=== PATIENT | female | born 1975 | race Caucasian/White ===

== ENCOUNTER 2019-02-14 16:05 | Emergency (ER) | payer OTHER, SELFPAY ==
[2019-02-14 16:08] VITALS: BP 157/94; PULSE 96; RESP 14; TEMP 36.6; O2SAT 94; BMI 28.7
--- NOTE | 2019-02-14 16:49 | ED_ITS ---
HPI - Skin/Abscess/Foreign Bdy <WILMA Casiano - Last Filed: 02/14/19 21:53> General Chief complaint: Skin/Abscess/Foreign Body Stated complaint: states cyst, paper handler problem Time Seen by Provider: 02/14/19 16:14 Source: patient Mode of arrival: ambulatory Limitations: no limitations History of Present Illness HPI narrative: 43-year-old female with a history of diabetes and multiple absc esses, presents emergency department complaining of an abscess on her pubic area that started last week and has grown in size. States that she was recently on a flight and medically because by that, has not tried anything at home. Complains of a sharp 9/10 pain that is worse with touching the area. Associated occasional chills, denies fever, vomiting, abdominal pain, change in bowel or bladder, chest pain, or shortness of breath. Patient also denies calf pain. Related Data Previous Rx's Medication Instructions Recorded sulfamethoxazole-trimethoprim 1 tab PO BID 7 Days #14 tab 02/14/19 Allergies Allergy/AdvReac Type Severity Reaction Status Date / Time No Known Drug Allergies Allergy Verified 02/14/19 16:08 Review of Systems <WILMA Casiano - Last Filed: 02/14/19 21:53> Review of Systems REVIEW OF SYSTEMS: GENERAL: Denies fever or chills. HENT: No head trauma. CARDIOVASCULAR: No chest pain or syncope. RESPIRATORY: No shortness of breath or cough. GASTROINTESTINAL: No nausea, vomiting, diarrhea, or constipation. GENITOURINARY: No flank pain or dysuria. MUSCULOSKELETAL: No pain, weakness, or deformities. INTEGUMENTARY: Complains of abscess, see HPI. NEURO: No numbness, tingling, memory loss, or confusion. PSYCH: No behavior or mood changes. PFSH <WILMA Casiano - Last Filed: 02/14/19 21:53> Medical History Diabetes (Acute) Hx of abscess of skin and subcutaneous tissue (Chronic) Social History Smoking Status: Unknown if ever smoked Social History Smoking Status: Unknown if ever smoked Exam <WILMA Casiano - Last Filed: 02/14/19 21:53> Initial Vital Signs Initial Vital Signs: Vital Signs Temperature 97.8 F 02/14/19 16:08 Pulse Rate 96 H 02/14/19 16:08 Respiratory Rate 14 02/14/19 16:08 Blood Pressure 157/94 H 02/14/19 16:08 Pulse Oximetry 94 02/14/19 16:08 PHYSICAL EXAMINATION: GENERAL: Alert and cooperative Answers questions promptly and appropriately. Vital signs noted. HENT: Normocephalic, atraumatic. EYES: Conjunctiva pink, sclera white, no periorbital swelling. NECK: Full range of motion. CARDIOVASCULAR: S1 and S2 sounds normal. Regular rate and rhythm, no murmurs, clicks, or bruits. No pedal edema. RESPIRATORY: Normal respiratory rate, trachea midline, airway patent. No stridor, nasal flaring or accessory muscle use. Lungs are clear in all werner without wheeze, rhonchi, or crackles. GASTROINTESTINAL: Bowel sounds normoactive. Abdomen is soft and non-tender. MUSCULOSKELETAL: Normal gait and coordination. Equal tone and mass bilaterally. EXTREMITIES: CMS intact. Moves all extremities. SKIN: Erythematous circular lesion above pubic bone 10 cm in diameter within 6 cm area of fluctuation. Increased warmth and tenderness, no discharge noted. NEURO: Alert and Oriented X 3. Good coordination. PSYCH: Appropriate affect and mood. <Valentina Cabrera DO - Last Filed: 02/16/19 01:10> Initial Vital Signs Initial Vital Signs: Vital Signs Temperature 97.8 F 02/14/19 16:08 Pulse Rate 96 H 02/14/19 16:08 Respiratory Rate 14 02/14/19 16:08 Blood Pressure 157/94 H 02/14/19 16:08 Pulse Oximetry 94 02/14/19 16:08 Procedures <WILMA Casiano - Last Filed: 02/14/19 21:53> Abscess I/D Site: other (Area above the pubic bone) Local Anesthetic: lidocaine 1% and with bicarb Amount of anesthesia used (mL): 6 Technique: incised with #11 blade (A 2 cm incision was made) Amount of fluid expressed (mL): 6 Irrigation: Yes Packing used?: none Complications: pain and other (Small amount of bleeding occurred after patient stand up, this was controlled with a pressure dressing.) Course <Kristine Gutierres, [employer] - Last Filed: 02/14/19 21:53> Course Narrative: Patient tolerated I and D procedure well. Consultations Consultation #1: Patient staffed Dr. Lopez. Vital Signs - 8 hr 02/14/19 16:08 02/14/19 18:14 Temperature 97.8 F Pulse Rate 96 H 94 H Respiratory Rate 14 17 Blood Pressure 157/94 H Blood Pressure [Right Arm] 157/92 H Pulse Oximetry 94 100 <Valentina Cabrera DO - Last Filed: 02/16/19 01:10> Vital Signs - 8 hr 02/14/19 16:08 02/14/19 18:14 Temperature 97.8 F Pulse Rate 96 H 94 H Respiratory Rate 14 17 Blood Pressure 157/94 H Blood Pressure [Right Arm] 157/92 H Pulse Oximetry 94 100 MDM - Skin/Abscess/Foreign Bdy <Kristine PabonWILMA tong - Last Filed: 02/14/19 21:53> Medical Records Attestation: I reviewed the patient's medical records. Lab Data Attestation: I reviewed the patient's lab results. MDM Narrative Medical decision making narrative: High probability of abscess formation as incision and drainage produced around 6 mL of pus see exudate, there is surrounding erythema and cellulitis, patient has a history of these and this felt similar. Patient was usually treated with Bactrim, this was prescribed as MRSA was concerned due to abscess formation. Discharge Plan Departure Patient Disposition: Home Clinical Impression: Abscess Cellulitis Qualifiers: Site of cellulitis: trunk Site of cellulitis of trunk: perineum Qualified Code(s): L03.315 - Cellulitis of perineum Discharge Date/Time: 02/14/19 18:28 Interventions: ED Discharge Assessment Last Done: 02/14/19 18:27 Instructions: DI for Cellulitis -- Adult, DI for Skin Abscess Activity Restrictions/Additional Instructions: Thank you for entrusting me with your care today. As discussed, I have put to small incision anterior abscess so it can drain. I have also prescribed antibiotics please take this until they are gone. You may change the dressing if it gets saturated, gently wash the area once a day. Follow up with her primary care provider as needed. Return to the emergency department if he develops fevers, increasing redness and pain, new infections or worsening infections, chest pain, syncope, or shortness of breath. Prescriptions: New sulfamethoxazole-trimethoprim 800-160 mg tablet 1 tab PO BID 7 Days Qty: 14 RF: 0 <Valentina Cabrera DO - Last Filed: 02/16/19 01:10> Cosign ED Attending Gayature Attestation: I was immediately available in the department for consultation. Documentation has been reviewed. I agree with assessment and plan.
[2019-02-14 18:14] VITALS: BP 157/92; PULSE 94; RESP 17; O2SAT 100
--- NOTE | 2019-02-14 18:27 | PC.NURSE ---
applied 4x4 to area
== END 2019-02-14 18:28 | disposition home or self-care (01) ==
PROVIDERS: Emergency Provider Nurse Practitioner
DX: L02.91 Cutaneous abscess, unspecified (principal); L03.315 Cellulitis of perineum
CPT/HCPCS: 10060; 99283

== ENCOUNTER 2019-03-19 14:19 | Emergency (ER) | payer OTHER, SELFPAY ==
[2019-03-19 14:26] VITALS: BP 150/88; PULSE 97; RESP 18; TEMP 36.5; O2SAT 100; BMI 28.7
--- NOTE | 2019-03-19 14:45 | ED.SKABFB ---
HPI - Skin/Abscess/Foreign Bdy <SOLIS Cedillo-BC - Last Filed: 03/19/19 15:30> General Chief complaint: Skin/Abscess/Foreign Body Stated complaint: Cyst under Rt arm Time Seen by Provider: 03/19/19 14:22 Source: patient and family Mode of arrival: ambulatory Limitations: no limitations History of Present Illness HPI narrative: The patient is a 43-year-old female nonsmoker with history of diabetes who presents with a chief complaint of infection in her right axilla. She states she has had several abscesses, most recently had 1 drained a few weeks ago at this facility. She was recently on Bactrim for it. She denies any objective fevers, nausea vomiting or diarrhea. She states that she noticed this today as she was at her primary care provider's yesterday for any other complaint. She has not done anything for it or taken anything for it. She states she has a history of hysterectomy. Related Data Home Medications Medication Instructions Recorded Confirmed albuterol sulfate [ProAir HFA] 2 puff INHALATION Q4H PRN 03/19/19 03/19/19 promethazine-codeine 5 ml PO BEDTIME PRN 03/19/19 Previous Rx's Medication Instructions Recorded clindamycin HCl 300 mg PO QID #40 cap 03/19/19 ketorolac 10 mg PO TID PRN #14 tab 03/19/19 Allergies Allergy/AdvReac Type Severity Reaction Status Date / Time No Known Drug Allergies Allergy Verified 03/19/19 14:30 Review of Systems <CHRISTY Cedillo - Last Filed: 03/19/19 15:30> Review of Systems GENERAL: Denies chills, fatigue, malaise, fever, sweats. HEENT: Denies sinus pain, ear pain, sore throat, difficulty swallowing, dizziness. RESPIRATORY: Denies dyspnea, cough, wheezing, hemoptysis, sputum. CARDIOVASCULAR: Denies chest pain, palpitations, orthopnea, edema, GASTROINTESTINAL: Denies nausea, vomiting, abdominal pain, diarrhea, constipation, melena. : Denies dysuria, frequency, incontinence, hematuria, urinary retention. MUSCULOSKELETAL: denies weakness, joint pain, or bony pain SKIN: See HPI NEUROLOGIC: Denies weakness, headache, numbness, change in speech, confusion, seizures, incoordination. PSYCHIATRIC: No concerning psychosocial issues. 12 point review of systems is negative except for those stated above PFSH <CHRISTY Cedillo - Last Filed: 03/19/19 15:30> Medical History (Updated 03/19/19 @ 15:21 by CHRISTY Cedillo) Diabetes (Acute) History of hysterectomy (Acute) Hx of abscess of skin and subcutaneous tissue (Chronic) Social History Smoking Status: Never smoker Social History Smoking Status: Never smoker Exam <CHRISTY Cedillo - Last Filed: 03/19/19 15:30> Narrative Exam Narrative: GENERAL: This is a well-nourished, well-developed patient, in no acute distress HEAD: Atraumatic. Normocephalic. No temporal or scalp tenderness. EYES: Pupils equal round and reactive. Extraocular motions intact. No scleral icterus. No injection or drainage. ENT: Nose without bleeding, purulent drainage or septal hematoma. Throat without erythema, tonsillar hypertrophy or exudate. Uvula midline. Airway patent. NECK: Trachea midline. No JVD or lymphadenopathy. Supple, nontender, no meningeal signs. CARDIOVASCULAR: Regular rate and rhythm without murmurs, gallops, or rubs. RESPIRATORY: Clear to auscultation. Breath sounds equal bilaterally. No wheezes, rales, or rhonchi. No coughing. No increased respiratory effort. No stridor. No accessory muscle use. GASTROINTESTINAL: Abdomen soft, non-tender, nondistended. No hepato-splenomegaly, or palpable masses. No guarding. Active bowel sounds all 4 quadrants. EXTREMITIES: No clubbing, cyanosis, or edema. No joint tenderness, effusion, or edema noted. BACK: Nontender without deformity or crepitance. No flank tenderness. NEURO: AOx3. SKIN: Right axilla has 2 x 2 cm palpable abscess versus a lymph node. Very firm. No fluctuance palpated. Overlying erythema noted extending beyond 2 x 2 cm to 6 x 7 cm of erythema. No drainage. No head. 2 mm abrasion noted right elbow, with 1 cm surrounding erythema. No drainage. Initial Vital Signs Initial Vital Signs: Vital Signs Temperature 97.7 F 03/19/19 14:26 Pulse Rate 97 H 03/19/19 14:26 Respiratory Rate 18 03/19/19 14:26 Blood Pressure 150/88 H 03/19/19 14:26 Pulse Oximetry 100 03/19/19 14:26 <Valentina Cabrera DO - Last Filed: 03/20/19 07:22> Initial Vital Signs Initial Vital Signs: Vital Signs Temperature 97.7 F 03/19/19 14:26 Pulse Rate 97 H 03/19/19 14:26 Respiratory Rate 18 03/19/19 14:26 Blood Pressure 150/88 H 03/19/19 14:26 Pulse Oximetry 100 03/19/19 14:26 Course <CHRISTY Cedillo - Last Filed: 03/19/19 15:30> Orders Ordered: Discontinued Medications Ketorolac Tromethamine (Toradol) 60 mg IM NOW ONE Stop: 03/19/19 14:34 Last Admin: 03/19/19 14:46 Dose: 60 mg Vital Signs - 8 hr 03/19/19 14:26 03/19/19 15:28 Temperature 97.7 F Pulse Rate 97 H 103 H Respiratory Rate 18 18 Blood Pressure 150/88 H 145/77 H Pulse Oximetry 100 98 <Valentina Cabrera DO - Last Filed: 03/20/19 07:22> Orders Ordered: Discontinued Medications Ketorolac Tromethamine (Toradol) 60 mg IM NOW ONE Stop: 03/19/19 14:34 Last Admin: 03/19/19 14:46 Dose: 60 mg Vital Signs - 8 hr 03/19/19 14:26 03/19/19 15:28 Temperature 97.7 F Pulse Rate 97 H 103 H Respiratory Rate 18 18 Blood Pressure 150/88 H 145/77 H Pulse Oximetry 100 98 MDM - Skin/Abscess/Foreign Bdy <CHRISTY Cedillo - Last Filed: 03/19/19 15:30> MDM Narrative Medical decision making narrative: The patient is a 43-year-old female with history of diabetes who presents with a chief complaint of a possible abscess or mass in her axilla. She has some erythema overlying an abscess versus lymph node. However there is no drainage, there is no palpable fluctuance and it was very firm. This we discussed at length the benefits of I and D. The patient elected to defer I and D at this point time as it is incredibly from common she has had several attempted were ?nothing came out.Given her exam, I will start her on clindamycin as she has recently been on Bactrim for a different abscess. Encouraged follow-up with PCP within a few days. Discussed that she may need I and D of the future and encouraged use of warm packs. Discussed coming back to the ER for any acute concerns such as inability keep down fluids. Patient got Toradol in the emergency department and I gave her prescription thereof. Discussed not combine it with any other anti-inflammatories. No questions or concerns upon discharge. Discharge Plan Departure Patient Disposition: Home Clinical Impression: Abscess of skin or subcutaneous tissue Qualifiers: Site of cutaneous abscess: extremity Site of cutaneous abscess of extremity: axilla Laterality: right Qualified Code(s): L02.411 - Cutaneous abscess of right axilla Discharge Date/Time: 03/19/19 15:28 Interventions: ED Discharge Assessment Last Done: 03/19/19 15:28 Instructions: DI for Skin Abscess Activity Restrictions/Additional Instructions: I have started you on antibiotics. Please take them with a yogurt or a probiotic. I have also given her prescription of Toradolot do not combine this with Aleve ibuprofen or any other NSAIDs. As discussed we have elected to defer I and D at this time as there is no palpable fluctuance and very firm. Please follow up with primary care provider in the next few days. Please use warm packs. This could help soften it. Please come back to the emergency department for any acute concerns such as inability keep down fluids etc Prescriptions: New clindamycin HCl 300 mg capsule 300 mg PO QID Qty: 40 RF: 0 ketorolac 10 mg tablet 10 mg PO TID PRN (Reason: pain) Qty: 14 RF: 0 No Action promethazine-codeine 6.25-10 mg/5 mL syrup 5 ml PO BEDTIME PRN (Reason: Cough) RF: 0 albuterol sulfate [ProAir HFA] 90 mcg/actuation HFA aerosol inhaler 2 puff inhalation Q4H PRN (Reason: dyspnea and cough) RF: 0 Stand Alone Forms: Work Release Note <Valentina Cabrera DO - Last Filed: 03/20/19 07:22> Cosign ED Attending Cosignature Attestation: I was immediately available in the department for consultation. Documentation has been reviewed. I agree with assessment and plan.
[2019-03-19] MEDS: KETOROLAC 60 MG/2 ML VIAL IM (14:46)
[2019-03-19 15:28] VITALS: BP 145/77; PULSE 103; RESP 18; O2SAT 98
== END 2019-03-19 15:28 | disposition home or self-care (01) ==
PROVIDERS: Emergency Provider Nurse Practitioner Family
DX: L02.411 Cutaneous abscess of right axilla (principal)
CPT/HCPCS: 96372; 99282; 99283; J1885

== ENCOUNTER 2020-06-22 23:30 | Emergency (ER) | payer OTHER, SELFPAY ==
[2020-06-22 23:30] VITALS: BP 185/84; PULSE 109; RESP 20; TEMP 36.6; O2SAT 96
--- NOTE | 2020-06-22 23:37 | ED_ITS ---
HPI - General Adult General Chief complaint: Hypertension Stated complaint: High blood pressure Time Seen by Provider: 06/22/20 23:32 Source: patient Mode of arrival: Ambulatory Limitations: no limitations History of Present Illness HPI narrative: Patient is a 45-year-old female with a history of hypertension currently on medications maintain by her primary provider who states that on average her blood pressure throughout the day is anywhere from the 150s to 160s systolic here for evaluation for elevated blood pressure. She denies any other associated symptoms. She states that she took her blood pressure 2 times today and stated that the highest it got was 190 systolic. She contacted her primary doctor to folder come to the emergency department. She states that she has taken her blood pressure medicines. She normally takes them at night. Related Data Home Medications Medication Instructions Recorded Confirmed albuterol sulfate [ProAir HFA] 2 puff INHALATION Q4H PRN 03/19/19 03/19/19 promethazine-codeine 5 ml PO BEDTIME PRN 03/19/19 Previous Rx's Medication Instructions Recorded clindamycin HCl 300 mg PO QID #40 cap 03/19/19 ketorolac 10 mg PO TID PRN #14 tab 03/19/19 Allergies Allergy/AdvReac Type Severity Reaction Status Date / Time No Known Drug Allergies Allergy Verified 03/19/19 14:30 Review of Systems Constitutional Constitutional: Denies fatigue, Denies fever(s) and Denies headache(s) ENT Ears, Nose, Mouth, and Throat: Denies vertigo, Denies dizziness and Denies headache(s) Cardiovascular Cardiovascular: Denies chest pain, Denies rapid heart rate, Denies irregular heart rhythm, Denies dyspnea and Denies dyspnea on exertion Respiratory Respiratory: Denies cough, Denies dyspnea and Denies dyspnea on exertion Gastrointestinal Gastrointestinal: Denies abdominal pain, Denies nausea and Denies vomiting Genitourinary Genitourinary: Denies dysuria Genitourinary: Denies dysuria Musculoskeletal Musculoskeletal: Denies arthralgias and Denies myalgias Integumentary/Breasts Skin/Breast: Denies lesions and Denies rash Neurologic Neurologic: Denies behavioral changes, Denies confusion, Denies vertigo, Denies dizziness and Denies headache(s) Psychiatric Psychiatric: Denies behavioral changes, Denies confusion and Denies depression Endocrine Endocrine: Denies fatigue Hematologic/Lymphatic Hematologic/Lymphatic: Denies easy bleeding and Denies easy bruising Allergic/Immunologic Allergic/Immunologic: Denies urticaria Patient History Medical History Diabetes (Acute) Hx of abscess of skin and subcutaneous tissue (Chronic) Surgical History (Updated 03/19/19 @ 15:17 by Yulissa Curry [facility]) History of hysterectomy (Acute) Social History Smoking Status: Never smoker Smoking Status: Never smoker alcohol intake frequency: 0-2 drinks per day Substance Use Type: marijuana Exam Initial Vital Signs Initial Vital Signs: Vital Signs Temperature 97.9 F 06/22/20 23:30 Pulse Rate 109 H 06/22/20 23:30 Respiratory Rate 20 06/22/20 23:30 Blood Pressure 185/84 H 06/22/20 23:30 Pulse Oximetry 96 06/22/20 23:30 Const General: cooperative, healthy appearing, comfortable and well developed HENMT Head: normal to inspection and normocephalic Resp Effort & Inspection: normal respiratory effort Auscultation: clear to auscultation bilaterally Cardio Rate: tachycardic Rhythm: regular rhythm GI Inspection: non-distended Palpation: soft Skin Lesions: no lesions Rashes: no rashes Neuro General: patient alert, patient awake and patient oriented x3 Cognition: normal cognition Speech: speech normal Sensory Exam: no sensory deficits noted Extrem General: normal to inspection and capillary refill normal Psych Appearance: grossly normal and well kempt Course Orders Ordered: ED Orders 06/22/20 23:37 EKG-12 Lead Stat Vital Signs Vital signs: Vital Signs - 8 hr 06/22/20 23:30 Temperature 97.9 F Pulse Rate 109 H Respiratory Rate 20 Blood Pressure 185/84 H Pulse Oximetry 96 Medical Decision Making ECG Data Attestation: I personally reviewed and interpreted this ECG as follows: Prior ECG tracings: not available for review Interpretation: Sinus tachycardia Ventricular rate 1 a 6 Normal axis Normal QRS Normal QTC No ST T wave changes MDM Narrative Medical decision making narrative: Blood pressure here in the emergency department was 185 systolic. She has no associated symptoms to include chest pain or headache or vision changes or abdominal pain. She states she is taking her blood pressure medicines. States she normally runs in the 150s to 160s systolic. I feel we can hold on further workup for now. No signs of end-organ dysfunction. Will have her contact her primary doctor tomorrow to discuss potential changes in her medicines. She was given return precautions. She expressed understanding and agreement. Discharge Plan Departure Patient Disposition: Home Clinical Impression: Hypertension Discharge Date/Time: 06/23/20 00:10 Activity Restrictions/Additional Instructions: It is important that you take your blood pressure at home like we discussed and to continue to take all of your medications. Contact your primary doctor tomorrow for follow-up. Return to the emergency department for any new or worsening symptoms Prescriptions: No Action promethazine-codeine 6.25-10 mg/5 mL syrup 5 ml PO BEDTIME PRN (Reason: Cough) RF: 0 albuterol sulfate [ProAir HFA] 90 mcg/actuation HFA aerosol inhaler 2 puff inhalation Q4H PRN (Reason: dyspnea and cough) RF: 0 clindamycin HCl 300 mg capsule 300 mg PO QID Qty: 40 RF: 0 ketorolac 10 mg tablet 10 mg PO TID PRN (Reason: pain) Qty: 14 RF: 0
== END 2020-06-23 00:10 | disposition home or self-care (01) ==
PROVIDERS: Emergency Provider Emergency Medicine
DX: I10 Essential (primary) hypertension (principal); R07.9 Chest pain, unspecified
CPT/HCPCS: 93005; 93010; 99281; 99283

== ENCOUNTER → 2022-02-27 16:16 | Outpatient (CLI) | payer OTHER, SELFPAY ==
--- NOTE | 2022-02-27 | DI.MRI.S_ITS ---
PROCEDURE: MR SHOULDER LT WO CON INDICATIONS: Strain of muscle,facia and tendon left shoulder TECHNIQUE: Noncontrast oblique coronal T2 fast spin echo with fat saturation, oblique sagittal T1 spin echo and T2 fast spin echo with fat saturation, axial T1 spin echo and T2 fast spin echo with fat saturation through the shoulder. COMPARISON: None. FINDINGS: Image quality: Excellent. Rotator cuff: There is pinhole full-thickness tear of the distal infraspinatus near the footprint (series 7 image 13). There is partial tear and tendinosis of the supraspinatus tendon at the musculotendinous junction. There is mild subscapularis tendinosis without tendon tear. Sagittal images demonstrate no rotator cuff muscle atrophy. Bones and bursae: No bone marrow contusions or fractures. Mild acromioclavicular and glenohumeral joint degeneration. The acromion demonstrates conventional anatomy, without an os acromiale. There is a small glenohumeral joint effusion. There is subcoracoid bursal fluid consistent with bursitis. Note is made of red marrow conversion in humerus. Capsule and soft tissues: Labrum appears intact. The long head of the biceps tendon demonstrates normal location and morphology. The rotator interval appears normal, without fibrosis. The coracohumeral ligament is normal in thickness. IMPRESSION: 1. Suspect pinhole full-thickness tear of the distal infraspinatus tendon. No tendon retraction or infraspinatus muscle atrophy. 2. Partial thickness tear of the supraspinatus tendon at the musculotendinous junction. 3. Mild subscapularis tendinosis. 4. Subcoracoid bursitis. There is a small glenohumeral joint effusion. 5. Mild acromioclavicular and glenohumeral joint degeneration. 6. Red marrow conversion in humerus. The finding is nonspecific and may be associated with a strenuous athletic activity, cigarette smoking or hematological disorder such as anemia. Recommend clinical correlation. Dictated by: Memo Lawrence M.D. on 02/28/2022 at 17:44 Approved by: Memo Lawrence M.D. on 03/01/2022 at 10:09
== END ==
PROVIDERS: PCP Family Medicine; Referring Provider Physician Assistant; Visit Provider Physician Assistant
DX: S46.912D Strain of unspecified muscle, fascia and tendon at shoulder and upper arm level, left arm, subsequent encounter (principal); M75.112 Incomplete rotator cuff tear or rupture of left shoulder, not specified as traumatic; M75.52 Bursitis of left shoulder; M25.412 Effusion, left shoulder
CPT/HCPCS: 73221